=== PATIENT | female | born 1995 | race Caucasian/White ===

== ENCOUNTER 2018-10-09 15:58 | Emergency (ER) | payer BC, OTHER ==
--- NOTE | 2018-10-09 16:11 | PDOC ---
History of Present Illness - General History Source: Patient Exam Limitations: No Limitations - History of Present Illness Initial Comments: 10/09/18 16:34 The patient is a 23 year old female, with no significant PMH, who presents to the emergency department complaining of a cough beginning approximately 5 days ago that progressively worsened today. The patient states she feels like she cant breath and endorses associated symptoms of chest pain,fever,nasal congestion, shortness of breath and 5 days of diarrhea, no relief with Robitussin. She also mentions she was at [facility] last week when she first noticed symptoms. The patient denies chest pain headache and dizziness. Denies , chills, nausea, vomit, and constipation. Allergies: NKDA Past surgical history: Appendectomy Social history: Admits to smoking and occasionally drinking but denies any recreational drugs PCP: None reported Documentation prepared by Jenna Harley, acting as medical underwriter for Manolo Yan MD. <Jenna Harley - Last Filed: 10/09/18 16:34> <Manolo Yan - Last Filed: 10/09/18 17:09> - General Chief Complaint: Respiratory Stated Complaint: COUGH,SHORTNESS OF BREATH Time Seen by Provider: 10/09/18 16:08 Past History <Jenna Harley - Last Filed: 10/09/18 16:34> - Surgical History Appendectomy: Yes - Immunization History Immunization Up to Date: Yes - Suicide/Smoking/Psychosocial Hx Smoking Status: No Smoking History: Never smoked Number of Cigarettes Smoked Daily: 0 <Manolo Yan - Last Filed: 10/09/18 17:09> - Past Medical History Allergies/Adverse Reactions: Allergies Allergy/AdvReac Type Severity Reaction Status Date / Time No Known Allergies Allergy Verified 10/09/18 16:03 Home Medications: Ambulatory Orders No Home Medications 0 dose .ROUTE UTDICT 06/28/12 Albuterol Sulfate Inhaler - [Ventolin Hfa Inhaler -] 1 - 2 inh PO QID #1 inhaler 10/09/18 Review of Systems - Review of Systems Able to Perform ROS?: Yes Comments:: 10/09/18 16:36 A complete review of 10 out of 10 review of systems is taken and is negative apart from what is previously mentioned below and in the HPI. <Jenna Harley - Last Filed: 10/09/18 16:34> *Physical Exam - Vital Signs Last Vital Signs Temp Pulse Resp BP Pulse Ox 100.1 F H 98 H 18 111/73 99 10/09/18 15:59 10/09/18 15:59 10/09/18 15:59 10/09/18 15:59 10/09/18 15:59 - Physical Exam Comments: 10/09/18 16:36 Vitals: Triage vital signs reviewed General Appearance: No acute distress, well nourished, well developed Head: Atraumatic Ears: TM's normal bilaterally Nose: +Nasal Congestion. Throat:+Mild Pharyngitis. Neck: Supple; No nuchal rigidity Chest Wall: Nontender Cardiac: Regular rate and rhythm, no murmurs, no rubs, no gallops Lungs: Clear to auscultation bilateral, good air movement bilaterally Skin: Warm and dry, no rashes or lesions, no rash, no petechiae Neuro: AOX3; Cranial Nerves 2-12 grossly intact, Strength intact to all extremities, Sensation intact to all extremities, gait normal Psych: Normal mood, normal affect <Jenna Harley - Last Filed: 10/09/18 16:34> Moderate Sedation - Procedure Monitoring Vital Signs: Procedure Monitoring Vital Signs Temperature 100.1 F H 10/09/18 15:59 Pulse Rate 98 H 10/09/18 15:59 Respiratory Rate 18 10/09/18 15:59 Blood Pressure 111/73 10/09/18 15:59 O2 Sat by Pulse Oximetry (%) 99 10/09/18 15:59 <Jenna Harley - Last Filed: 10/09/18 16:34> ED Treatment Course - Medications Given in the ED: ED Medications Discontinued Medications Generic Name Dose Route Start Last Admin Trade Name Freq PRN Reason Stop Dose Admin Acetaminophen 1,000 mg 10/09/18 16:25 10/09/18 16:30 Tylenol - PO 10/09/18 16:26 1,000 mg ONCE ONE Administration Albuterol/Ipratropium 1 amp 10/09/18 16:25 10/09/18 16:32 Duoneb - NEB 10/09/18 16:26 1 amp ONCE ONE Administration <Jenna Harley - Last Filed: 10/09/18 16:34> Medical Decision Making - Medical Decision Making 10/09/18 17:04 23 years old no significant past medical history presents to the ED with 4-5 day history of runny nose cough congestion substernal ache with cough No PE DVT risk factors History and examination consistent with viral URI No indication for influenza treatment given greater than 48 hours a symptomatology Status post DuoNeb patient's cough slightly better we'll recommend Tylenol Motrin pseudoephedrine for congestion and Ventolin MDI for cough patient will return to ED if any worsening symptoms or no improvement after 2-3 days Findings, need for follow-up and strict return instructions discussed patient. <Manolo Yan - Last Filed: 10/09/18 17:09> *DC/Admit/Observation/Transfer - Attestations Scribe Attestion: 10/09/18 16:36 Documentation prepared by Jenna Harley, acting as medical underwriter for Manolo Yan MD. <Jenna Harley - Last Filed: 10/09/18 16:34> - Discharge Dispostion Decision to Admit order: No <Manolo Yan - Last Filed: 10/09/18 17:09> Diagnosis at time of Disposition: URI (upper respiratory infection) Qualifiers: URI type: unspecified viral URI Qualified Code(s): J06.9 - Acute upper respiratory infection, unspecified - Discharge Dispostion Disposition: HOME Condition at time of disposition: Stable - Prescriptions Prescriptions: Albuterol Sulfate Inhaler - [Ventolin Hfa Inhaler -] 1 - 2 inh PO QID #1 inhaler - Referrals Referrals: [facility] [place] [facility] [place] [Provider Group] - Patient Instructions Printed Discharge Instructions: DI for Viral Upper Respiratory Infection -- Adult Additional Instructions: Alternate [id number] Tylenol Motrin every 3 hours for the next 2 days. Drink plenty of fluids. Behind the pharmacy counter purchase pseudoephedrine take as directed for 1 day to alleviate congestion. Ventolin MDI 1-2 puffs every 4 hours for 2 days for cough. Return to the emergency department for any severe worsening symptoms difficulty breathing or for any concerns otherwise follow-up with her primary care provider with the clinic next week for any persistence of symptoms.
[2018-10-09 16:23] VITALS: BP 111/73; PULSE 98; TEMP 100.1; BMI 23.6
[2018-10-09] MEDS ORDERED: ALBUTEROL SO4 2.5/IPRATROPIUM 0.5 INH SOL 3 ML VIAL.NEB. NEB ONE ×2 (16:25→16:29)
[2018-10-09] MEDS ORDERED: ACETAMINOPHEN 500 MG TABLET (FP) PO ONE (16:25)
[2018-10-09] MEDS ORDERED: ACETAMINOPHEN 500 MG TABLET (FP) ONE (16:29)
== END 2018-10-09 17:15 | disposition home or self-care (01) ==
LOC: FER 15:58
PROC: 3E0F7GC Introduction of Other Therapeutic Substance into Respiratory Tract, Via Natural or Artificial Opening (ICD-10-PCS; principal; 2018-10-09)
DX: J06.9 Acute upper respiratory infection, unspecified (principal)
CPT/HCPCS: 71046-TC-FY; 99281-25

== ENCOUNTER 2023-10-18 15:59 | Emergency (ER) | payer OTHER ==
[2023-10-18 16:28] VITALS: BP 109/64; PULSE 83; RESP 18; TEMP 99.2; BMI 27.1
[2023-10-18] MEDS ORDERED: ALBUTEROL SO4 2.5/IPRATROPIUM 0.5 INH SOL 3 ML VIAL.NEB. NEB ONE (16:33)
[2023-10-18] MEDS: ACETAMINOPHEN 325 MG TABLET (FP) PO ONE (16:37)
[2023-10-18] MEDS: ALBUTEROL SO4 2.5/IPRATROPIUM 0.5 INH SOL 3 ML VIAL.NEB. NEB ONE (16:37)
[2023-10-18] MEDS ORDERED: predniSONE 20 MG TABLET (UD) ONE (17:42)
[2023-10-18] MEDS: predniSONE 20 MG TABLET (UD) PO ONE (17:57)
== END 2023-10-18 18:28 | disposition home or self-care (01) ==
LOC: FER 15:59
PROC: 3E0F7GC Introduction of Other Therapeutic Substance into Respiratory Tract, Via Natural or Artificial Opening (ICD-10-PCS; principal; 2023-10-18)
DX: R50.9 Fever, unspecified (principal); R11.0 Nausea; R05.9 Cough, unspecified; J10.1 Influenza due to other identified influenza virus with other respiratory manifestations; J98.01 Acute bronchospasm; J06.9 Acute upper respiratory infection, unspecified; Z20.822 Contact with and (suspected) exposure to COVID-19
CPT/HCPCS: 0241U-QW; 71046-TC-FY; 81025; 99284-25